=== PATIENT | male | born 1990 | race African-American/Black ===

== ENCOUNTER 2018-07-13 13:36 | Inpatient (IN) | payer OTHER ==
[~2018-07-13] VITALS: Ht 175.3 cm; Wt 82.1 kg
[2018-07-13 14:25] LABS: HEMATOCRIT 46.6 % (42.0-52.0); HEMOGLOBIN 15.2 g/dl (13.5-17.5); MEAN CORPUSCULAR HEMOGLOBIN 26.9 pg (27.0-33.0); MEAN CORPUSCULAR HGB CONC 32.6 g/dl (32.0-36.5); MEAN CORPUSCULAR VOLUME 82.3 fl (80.0-96.0); PLATELET COUNT, AUTOMATED 240 10^3/uL (150-450); RED BLOOD COUNT 5.66 10^6/uL (4.30-6.10); WHITE BLOOD COUNT 5.4 10^3/uL (4.0-10.0)
[2018-07-13 16:07] LABS: ACETAMINOPHEN LEVEL < 2.0 UG/ML (10.0-30.0); ALBUMIN 4.2 GM/DL (3.2-5.2); ALT/SGPT 43 U/L (12-78); BILIRUBIN,DIRECT 0.2 MG/DL (0.0-0.2); BILIRUBIN,TOTAL 0.6 MG/DL (0.2-1.0); BLOOD UREA NITROGEN 12 MG/DL (7-18); CALCIUM LEVEL 8.6 MG/DL (8.5-10.1); CARBON DIOXIDE LEVEL 27 MEQ/L (21-32); CHLORIDE LEVEL 106 MEQ/L (98-107); ETHYL ALCOHOL (ETHANOL) < 0.003 % (0.000-0.010); GLOMERULAR FILTRATION RATE > 60.0 (>60); GLUCOSE, FASTING 108 MG/DL (70-100); POTASSIUM SERUM 3.8 MEQ/L (3.5-5.1); SALICYLATE LEVEL < 1.7 MG/DL (5.0-30.0); SODIUM LEVEL 139 MEQ/L (136-145)
[2018-07-13 16:25] LABS: AMPHETAMINES LEVEL URINE NEGATIVE (NEGATIVE); BARBITURATES URINE NEGATIVE (NEGATIVE); BENZODIAZEPINES URINE NEGATIVE (NEGATIVE); CANNABINOIDS URINE NEGATIVE (NEGATIVE); COCAINE METABOLITE URINE NEGATIVE (NEGATIVE); METHADONE URINE NEGATIVE (NEGATIVE); OPIATES URINE NEGATIVE (NEGATIVE); PHENCYCLIDINE URINE NEGATIVE (NEGATIVE)
[2018-07-13] MEDS ORDERED: MOM 30ML SUSPENSION UDC PO PRN (18:00)
[2018-07-13] MEDS ORDERED: MAALOX 30 ML SUSP *UDC PO PRN (18:00)
[2018-07-13] MEDS ORDERED: ACETAMINOPHEN TAB 650MG DOSE (2X325MG) PO PRN (18:00)
[2018-07-13 23:30] VITALS: BP 122/72
[2018-07-14 06:35] VITALS: BP 124/65
--- NOTE | 2018-07-14 10:38 | MHHPEPDOC ---
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 Per [facility] mental health evaluation: "Patient sent here from [facility] by his therapist (Noah Merida, [employer]), following a crisis evaluation. Patient reportedly had been in group therapy today, when he began to break down about a recent situation which he was involved in. During the crisis eval patient described as being very tearful, reported being depressed & endorsed + SI, including plans to either hang himself in his barracks room or cut his neck with a knife." States he has been experiencing rejection lately. Says after returning from [facility] one of his friends blocked him on "facebook". Says he wants to "get better" after [facility]. Reports he was there from January to June of this year. Says he played a support role, but did not see combat. Says he has had periods of depression growing up, but that being away from family for the first time during the holidays made him more depressed. During this time he states he was "depressed every day". Since returning from [facility] due to rejection from friend he has remained anxious and had suicidal ideations, says last time he had these thoughts was yesterday during group therapy. Denies HI/denies AVH/reyna/PTSD. Psychiatric Review of Systems Depression (2 or more weeks): depressed mood, insomnia/hypersomnia (wakes up early in the morning for 2 hours, tries to get back to sleep), feelings of excess/guilt (Related to leaving [facility] early due to mental illness, says he felt that he was a burden on others so kept to himself.), decreased energy (a little lower than average.), difficulty concentrating, appetite changes (Feels overeats.), psychomotor changes (retardation.), suicidal thoughts Reyna (4 or more days of): denies Psychosis: paranoia (Mild paranoia.), denies PTSD: intrusive memories Anxiety: gen/non-specific anxiety, situational anxiety (Being rejected by his friend) Anxiety/ 6 months or more of: restlessness, keyed up, difficulty concentrating, sleep disturbance Past Psychiatric History Has been going to [facility] since June otherwise no past psychiatric history Past Medical History Medical Problems Denies Head Injury: No Seizures: No Hospitalizations: No Surgeries: No Family Medical/Psychiatric HX Medical Problems Reports DM in Mother, as of 4 years ago. Father pre-diabetes. Psychiatric Disorders: No Addiction: No Suicide Attemps/Completions: No Addiction History nicotine (only in [facility] Social History Childhood: Grew up in [place] with parents, 1 older sister, 2 younger brothers. [place], eventually moving into a house at 15. No longer in contact with his sister, says they are "like strange rs", still in contact with father. Abuse/Trauma:Denies Current Living Situation: [place] in [facility] [place] [facility], says he has few friends. Education: Highschool, dropped out of college for "personal reasons due to argument with family" Employment: Social Support: Father only Legal: misdemeanor for loitering in 2013 (ran from home after argument from parents, wandering the streets) Marital: single Mental Status Examination General Appearance: well groomed, appears stated age, hospital scubs/clothing Build: average Demeanor: withdrawn, guarded Eye Contact: avoidant Activity: slowed Behavior: cooperative, withdrawn Speech: clear, slow, low in volume, non-spontaneous, impoverished Mood: depressed, anxious Affect: constricted, anxious Thought Process: circumstantial, depressed, slow Thought Content (Delusions): denies SI, HI, AVH, paranoia Thought Content (Other): guarded, guilty (Perseverates on feling guilty.), appears paranoid Thought Content (Aggressive): none reported Perception (Hallucinations): none reported Perception (Other): none reported Cognition (Impairment of): attention/concentration Cognition(Intelligence Est.): borderline Oriented: Awake, Alert, Oriented times three Insight: poor Judgment: Poor Psychosis: Denies Diagnoses 1. major depressive disorder with psychotic features 2. Unspecified anxiety disorder Assessment Patient endorses chronic depressed mood which worsened since being deployed to [facility]. 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 Currently denies SI, but "depends on the day". 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 [place] and appears mildly paranoid on interview. He agrees to start sertraline 50 mg PO daily for mood and aripiprazole 2.5 mg QHS as augmentation for mood and to help treat paranoia. Problem List Problems: (1) Depression with suicidal ideation Status: Acute Initial Treatment Plan 1. Patient was admitted on a [9.39] status. 2. Complete history was obtained. 3. With patients permission, family will be contacted and database will be expanded. 4. Patients medication regimen will be reviewed and changed accordingly. 5. Patient will be provided with protected environment. 6. Patient will be treated with individual, group, and milieu therapies. 7. Patient will receive supportive psych-education. 8. Discharge planning will commence immediately. 9. Outpatient follow-up treatment will be strongly recommended. 10. The initial treatment plan will focus initially on: * Depression. * Risk for suicide. * Substance abuse risk. ESTIMATED LENGTH OF STAY: 5-7 DAYS. TIME SPENT COUNSELING AND COORDINATING INITIAL CARE: 60 minutes. Vital Signs Vital Signs Date Time Temp Pulse Resp B/P (MAP) Pulse Ox O2 Delivery O2 Flow Rate FiO2 07/14/18 06:35 99.0 65 14 124/65 (84) 07/13/18 23:30 97 07/13/18 13:45 Room Air Laboratory Data 24H Labs Laboratory Tests 2 07/13/18 14:00: Anion Gap 6L, Glomerular Filtration Rate > 60.0, Calcium Level 8.6, Aspartate Amino Transf (AST/SGOT) 24, Alanine Aminotransferase (ALT/SGPT) 43, Alkaline Phosphatase 100, Total Bilirubin 0.6, Direct Bilirubin 0.2, Total Protein 7.0, Albumin 4.2, Albumin/Globulin Ratio 1.50, Thyroid Stimulating Hormone (TSH) 1.320, Salicylates Level < 1.7L, Acetaminophen Level < 2.0L, Ethyl Alcohol Level < 0.003 07/13/18 14:07: Nucleated Red Blood Cells % (auto) 0.0 07/13/18 15:52: Urine Amphetamines Screen NEGATIVE, Urine Benzodiazepines Screen NEGATIVE, Urine Opiates Screen NEGATIVE, Urine Methadone Screen NEGATIVE, Urine Barbiturates Screen NEGATIVE, Urine Phencyclidine Screen NEGATIVE, Urine Cocaine Metabolite Screen NEGATIVE, Urine Cannabinoids Screen NEGATIVE CBC/BMP Laboratory Tests 07/13/18 14:00 07/13/18 14:07 Red Blood Count 5.66, Mean Corpuscular Volume 82.3, Mean Corpuscular Hemoglobin 26.9 L, Mean Corpuscular Hemoglobin Concent 32.6, Red Cell Distribution Width 11.7 Medications No Active Prescriptions or Reported Meds Allergies Coded Allergies: No Known Drug Allergies (Verified Allergy, Unknown, 07/13/18) JERICA IRBY PGY-1 Jul 14, 2018 10:38
[2018-07-14] MEDS ORDERED: PILL CRUSHER/CUTTER 1 EACH XX PRN (10:45)
[2018-07-14] MEDS: SERTRALINE HCL 50 MG TAB PO SCH (11:35)
[2018-07-14 18:00] VITALS: BP 130/67
--- NOTE | 2018-07-14 18:38 | CR.PDOC ---
General Date of Consultation: Jul 14, 2018 Consultation REASON FOR CONSULTATION/CHIEF COMPLAINT: [new psych admission ]. 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 Per [facility] mental health evaluation: "Patient sent here from [facility] by his therapist (Noah Merida, [facility]), following a crisis evaluation. Patient reportedly had been in group therapy yesterday, when he began to break down about a recent situation which he was involved in. During the crisis eval patient described as being very tearful, reported being depressed & endorsed + SI, including plans to either hang himself in his barracks room or cut his neck with a knife." States he has been experiencing rejection lately. Says after returning from [facility] one of his friends blocked him on "[employer]". He denied any symptoms including fever, chills, chest pain, sob, headache bowel or bladder problem. ROS - all 14 point review of system is negative except for whats listed in HPI ALLERGIES: Please see below. HOME MEDICATIONS: Please see below. PAST MEDICAL HISTORY: none PAST SURGICAL HISTORY: none FAMILY HISTORY: Reports DM in Mother, as of 4 years ago. Father pre-diabetes. 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 PHYSICAL EXAMINATION: VITAL SIGNS: Please see below. Gen: NAD, healthy appearing , HEENT: normocephalic, atraumatic, no discharge from ears or nose, no oropharyngeal erythema or exudate, neck is supple, no lymphadenopathy, trachea midline CVS: RRR, normal S1n S2, no murmur, rubs, or gallops, no edema, no jvd Resp: LCTAB, no rhonchi, wheezes or crackles Abd : soft nontender, normal bowel sounds, no rebound tenderness or guarding MSK: no swelling, full range of motion, strength 5/5 Neuro: AOAx3, no confusion, no focal deficit Psych: normal mood and affect, good judgment LABORATORY DATA: Please see below. ASSESSMENT/PLAN: suicidal thoughts and ideation - mgt per psych Medical recs vitals stable, lab wnl, no complaint , utox negative medicine sign off consult prn dvt ppx - ambulates , doesn't need unless patient is not walking around much full code , from home Vital Signs/I&O Vital Signs Date Time Temp Pulse Resp B/P (MAP) Pulse Ox O2 Delivery O2 Flow Rate FiO2 07/14/18 06:35 99.0 65 14 124/65 (84) 07/13/18 23:30 97 07/13/18 13:45 Room Air Allergies Coded Allergies: No Known Drug Allergies (Verified Allergy, Unknown, 07/13/18) Home Medications No Active Prescriptions or Reported Meds JOSE DAVID [place] MD Jul 14, 2018 18:38
[2018-07-14] MEDS ORDERED: NS 1,000 ML IV SCH (19:00)
--- NOTE | 2018-07-14 19:31 | ECGEPIP ---
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
[2018-07-14] MEDS: OLANZapine ORAL DISINTEGRATING TAB 5MG PO PRN (20:02)
[2018-07-14] MEDS: hydrOXYzine 50 MG TAB PO PRN (20:02)
[2018-07-15 06:56] LABS: HEMOGLOBIN A1c 6.2 %
[2018-07-15 07:00] VITALS: BP 131/69
[2018-07-15 07:03] LABS: CHOLESTEROL RISK RATIO 3.333 (<5)
[2018-07-15] MEDS: SERTRALINE HCL 50 MG TAB PO SCH (09:33)
--- NOTE | 2018-07-15 12:01 | MHIPNPDOC ---
[facility] Progress Note Progress Note DATE OF SERVICE: 07/15/18 HISTORY: See HPI Interval history: Remains isolative in room during AM, missing breakfast. Appetite still decreased, says sleep was "better". Encouraged to go to groups, says he will make an effort. denies SI/HI/josie. Says he continues to be depressed. States that he is not having side effects from the medications, but the abilify possibly contributes to fatigue in the AM. Says mood is "pretty good". [place], says gave aftershave as a [employer] gift, but that he is not attracted to him as more than a friend. VITAL SIGNS: See below. NEW TEST RESULTS: see below, EKG unremarkable, QTc <450 ms, Hba1c 6.2%, LDL elevated at 120 CURRENT MEDICATIONS: See below. MENTAL STATUS EXAMINATION: Patient is a 27-year old male, who is lying in bed comfortably, hygiene is fair, cooperative, pleasant, well-groomed in hospital clothing. Speech: Is slowed, decreased volume. Language skills are poor. Thought processes including: circumstantial. Thought content: says he needs help with depression. Perseverates on being rejected by friend. Abstract reasoning, and computation: fair Description of associations: intact Description of abnormal or psychotic thoughts: denies Judgment: poor. Insight: improving. Orientation: x4. Recent and remote memory: intact. Attention span and concentration: poor concentration. Language: fijian. Fund of knowledge: average. Mood: "pretty good". Affect: depressed, blunted, does not smile. DIAGNOSES: 1. Major depressive disorder with psychotic features 2. Unspecified anxiety disorder ASSESSMENT; Patient continues to be depressed, not attending groups yet, appetite remains poor, but sleep has improved with medications. Tolerating medications well apart from mild sedation from Abilify as his body adjusts to the medication. MANAGEMENT PLAN: See above TIME SPENT: 20 minutes. Vital Signs Vital Signs Date Time Temp Pulse Resp B/P (MAP) Pulse Ox O2 Delivery O2 Flow Rate FiO2 07/15/18 07:00 98.5 63 16 131/69 (89) 07/13/18 23:30 97 07/13/18 13:45 Room Air Laboratory Data 24H Labs Laboratory Tests 2 07/15/18 06:13: Estimated Mean Plasma Glucose 131H, Hemoglobin A1c 6.2, Triglycerides Level 65, LDL Cholesterol 120H, Total Cholesterol 190, Non-HDL Cholesterol (LDL + VLDL) 133, Total HDL Cholesterol 57, Cholesterol/HDL Ratio 3.333 Current Medications Current Medications Acetaminophen (Tylenol Tab) 650 mg Q6HP PRN PO HEADACHE or DISCOMFORT; Start 07/13/18 at 18:00 Al Hydrox/Mg Hydrox/Simethicone (Mylanta) 30 ml Q4HP PRN PO HEARTBURN/INDIGESTION; Start 07/13/18 at 18:00 Aripiprazole (AbiLIFY) 2.5 mg QHS PO Last administered on 07/14/18at 20:03; Start 07/14/18 at 21:00 Home Med (Med Rec Complete!) ASDIRECTED XX ; Start 07/13/18 at 19:00; Stop 07/13/18 at 19:05; Status DC Hydroxyzine HCl (Atarax) 50 mg Q6HP PRN PO ANXIETY Last administered on 07/14/18at 20:02; Start 07/14/18 at 11:30 Magnesium Hydroxide (Milk Of Magnesia) 30 ml DAILYPRN PRN PO CONSTIPATION; Start 07/13/18 at 18:00 Olanzapine (ZyPREXA ZYDIS) 5 mg Q4HP PRN PO AGITATION Last administered on 07/14/18at 20:02; Start 07/13/18 at 18:00 Sertraline HCl (Zoloft) 50 mg DAILY PO Last administered on 07/15/18at 09:33; Start 07/14/18 at 09:00 Sodium Chloride 1,000 ml @ 50 mls/hr Q20H IV ; Start 07/14/18 at 19:00; Stop 07/14/18 at 19:08; Status DC Trazodone HCl (Desyrel) 50 mg QHSP PRN PO INSOMNIA; Start 07/14/18 at 00:15 Allergies Coded Allergies: No Known Drug Allergies (Verified Allergy, Unknown, 07/13/18) JERICA IRBY PGY-1 Jul 15, 2018 12:01
[2018-07-15] MEDS: hydrOXYzine 50 MG TAB PO PRN (15:48)
[2018-07-15 18:00] VITALS: BP 115/75
[2018-07-16 07:07] VITALS: BP 117/77
[2018-07-16] MEDS: SERTRALINE HCL 50 MG TAB PO SCH (08:39)
[2018-07-16] MEDS: hydrOXYzine 50 MG TAB PO PRN (14:55)
--- NOTE | 2018-07-16 15:02 | MHIPNPDOC ---
[facility] Progress Note Progress Note DATE OF SERVICE: 07/16/18 HISTORY: See HPI Interval history: Patient no longer isolative to his room and has been attending groups today. Affect appears brighter. States he feels "betrayed by my friend I gave the ai's gift to, he was like a brother to me". Says he has had anxiety since [place], denies exposure to trauma, denies nightmares, intrusive memories or flashbacks. Says during holidays no family contacted him and he was hurt by this, but denies any other major stressors. VITAL SIGNS: See below. NEW TEST RESULTS: see below. CURRENT MEDICATIONS: See below. MENTAL STATUS EXAMINATION: Patient is a 27-year old male, who is lying in bed comfortably, hygiene is fair, cooperative, pleasant, well-groomed in hospital clothing. Speech: Is slowed, decreased volume. Language skills are poor. Thought processes including: circumstantial. Thought content: says he needs help with depression. Continues to perseverate on being rejected by friend. Abstract reasoning, and computation: fair Description of associations: intact Description of abnormal or psychotic thoughts: denies Judgment: improving Insight: improving. Orientation: x4. Recent and remote memory: intact. Attention span and concentration: poor concentration. Language: kosovan. Fund of knowledge: average. Mood: "still pretty good". Affect: dysthymic, constricted, does rarely smile. DIAGNOSES: 1. Major depressive disorder with psychotic features 2. Unspecified anxiety disorder ASSESSMENT; Still depressed and anxious, but less isolative to his room and affect appears bright, was seen smiling and times. He has started to attend groups, reports tolerateing medications without side effects and agrees to increase aripiprazole from 2.5 mg to 5 mg PO QHS for augmentation of SSRI. Less sedation today from aripiprazole. He agrees to continued inpatient stay as he reports he "still needs time for things to be right". Continue sertraline 50 mg Po daily for depression and anxiety. Denies SI/HI/AVH/josie. MANAGEMENT PLAN: See above TIME SPENT: 20 minutes. Vital Signs Vital Signs Date Time Temp Pulse Resp B/P (MAP) Pulse Ox O2 Delivery O2 Flow Rate FiO2 07/16/18 07:07 98.6 67 16 117/77 (90) 07/13/18 23:30 97 07/13/18 13:45 Room Air Current Medications Current Medications Acetaminophen (Tylenol Tab) 650 mg Q6HP PRN PO HEADACHE or DISCOMFORT; Start 07/13/18 at 18:00 Al Hydrox/Mg Hydrox/Simethicone (Mylanta) 30 ml Q4HP PRN PO HEARTBURN/INDIGESTION; Start 07/13/18 at 18:00 Aripiprazole (AbiLIFY) 2.5 mg QHS PO Last administered on 07/15/18 20:22; Start 07/14/18 at 21:00; Stop 07/16/18 at 11:25; Status DC Aripiprazole (AbiLIFY) 5 mg QHS PO ; Start 07/16/18 at 21:00 Home Med (Med Rec Complete!) ASDIRECTED XX ; Start 07/13/18 at 19:00; Stop 07/13/18 at 19:05; Status DC Hydroxyzine HCl (Atarax) 50 mg Q6HP PRN PO ANXIETY Last administered on 07/15/18at 15:48; Start 07/14/18 at 11:30 Magnesium Hydroxide (Milk Of Magnesia) 30 ml DAILYPRN PRN PO CONSTIPATION; Start 07/13/18 at 18:00 Olanzapine (ZyPREXA ZYDIS) 5 mg Q4HP PRN PO AGITATION Last administered on 07/14/18at 20:02; Start 07/13/18 at 18:00 Sertraline HCl (Zoloft) 50 mg DAILY PO Last administered on 07/16/18at 08:39; Start 07/14/18 at 09:00 Sodium Chloride 1,000 ml @ 50 mls/hr Q20H IV ; Start 07/14/18 at 19:00; Stop 07/14/18 at 19:08; Status DC Trazodone HCl (Desyrel) 50 mg QHSP PRN PO INSOMNIA; Start 07/14/18 at 00:15 Allergies Coded Allergies: No Known Drug Allergies (Verified Allergy, Unknown, 07/13/18) JERICA IRBY PGY-1 Jul 16, 2018 11:28
[2018-07-16 18:00] VITALS: BP 132/74
[2018-07-16] MEDS: traZODone 50 MG TAB PO PRN (22:51)
[2018-07-17 06:58] VITALS: BP 134/86
[2018-07-17] MEDS: SERTRALINE HCL 50 MG TAB PO SCH (08:24)
--- NOTE | 2018-07-17 13:47 | MHIPNPDOC ---
[facility] Progress Note Progress Note DATE OF SERVICE: 07/17/18 HISTORY: See HPI Interval history: Patient was seen eating lunch in break room. Reports good appetite. Interview conducted in his room. He is now more able to express himself spontaneously with brighter affect. He states he is tolerating the medications well without side effects including symptoms of akathisia, but does have periods of anxiety since confined on the unit and asked for hydroxyzine which helped significantly. States sleep was poor last night since people check on him in intervals. He says he continues to fell "better" and that anxiety/coping skills group was helpful. During therapy session he endorsed he had special education up to grade 9, but finished highschool without IEP help in normal class. States that he was "differently and harder" by mother growing up compared to siblings and this has affected his self-esteem as an adult. We discussed how continued therapy would be most beneficial for him. Says when he came in to the unit he felt the "selby were closing in on him" and now he is "starting to feel hope". He is agreeable to staying over the weekend to improve and says the "medications are just starting to work" and wants to feels safe on the outside. Denies SI/HI/AVH/josie, but worried could decompensate if not allowed some more inpatient treatment, despite wanting to leave. VITAL SIGNS: See below. NEW TEST RESULTS: see below. CURRENT MEDICATIONS: See below. MENTAL STATUS EXAMINATION: Patient is a 27-year old male, who is lying in bed comfortably, hygiene is fair, cooperative, pleasant, well-groomed in hospital clothing. Speech: Is slowed, decreased volume. Language skills are improving. Thought processes including: linear, logical Thought content: says he needs help with depression. Continues to perseverate on being rejected by friend. Abstract reasoning, and computation: fair Description of associations: intact Description of abnormal or psychotic thoughts: denies Judgment: improving Insight: improving. Orientation: x4. Recent and remote memory: intact. Attention span and concentration: poor concentration. Language: indonesian. Fund of knowledge: average. Mood: "getting better". Affect: less dysthymic, less constricted, does rarely smile. DIAGNOSES: 1. Major depressive disorder with psychotic features 2. Unspecified anxiety disorder ASSESSMENT; Less depressed, but still has periods where he is anxious, continues to be less isolative to his room and affect continues to appear less constricted and brighter, still smiling and times. Finds attending groups to be helpful to manage anxiety, continues to tolerate medications without side effects, no akathisia symptoms or sedation and agrees to continue aripiprazole 5 mg PO QHS for augmentation of SSRI. He agrees to continued inpatient stay. Continue sertraline 50 mg Po daily for depression and anxiety. Denies SI/HI/AVH/josie, bu t worries may decompensate if he leaves to early and agrees to stay the weekend. MANAGEMENT PLAN: See above TIME SPENT: 30 minutes. Vital Signs Vital Signs Date Time Temp Pulse Resp B/P (MAP) Pulse Ox O2 Delivery O2 Flow Rate FiO2 07/17/18 06:58 98.0 59 14 134/86 (102) 07/13/18 23:30 97 07/13/18 13:45 Room Air Current Medications Current Medications Acetaminophen (Tylenol Tab) 650 mg Q6HP PRN PO HEADACHE or DISCOMFORT; Start 07/13/18 at 18:00 Al Hydrox/Mg Hydrox/Simethicone (Mylanta) 30 ml Q4HP PRN PO HEARTBURN/INDIGE STION; Start 07/13/18 at 18:00 Aripiprazole (AbiLIFY) 2.5 mg QHS PO Last administered on 07/15/18at 20:22; Start 07/14/18 at 21:00; Stop 07/16/18 at 11:25; Status DC Aripiprazole (AbiLIFY) 5 mg QHS PO Last administered on 07/16/18at 20:20; Start 07/16/18 at 21:00 Home Med (Med Rec Complete!) ASDIRECTED XX ; Start 07/13/18 at 19:00; Stop 07/13/18 at 19:05; Status DC Hydroxyzine HCl (Atarax) 50 mg Q6HP PRN PO ANXIETY Last administered on 07/16/18at 14:55; Start 07/14/18 at 11:30 Magnesium Hydroxide (Milk Of Magnesia) 30 ml DAILYPRN PRN PO CONSTIPATION; Start 07/13/18 at 18:00 Olanzapine (ZyPREXA ZYDIS) 5 mg Q4HP PRN PO AGITATION Last administered on 07/14/18at 20:02; Start 07/13/18 at 18:00 Sertraline HCl (Zoloft) 50 mg DAILY PO Last administered on 07/17/18at 08:24; Start 07/14/18 at 09:00 Sodium Chloride 1,000 ml @ 50 mls/hr Q20H IV ; Start 07/14/18 at 19:00; Stop 07/14/18 at 19:08; Status DC Trazodone HCl (Desyrel) 50 mg QHSP PRN PO INSOMNIA Last administered on 07/16/18at 22:51; Start 07/14/18 at 00:15 Allergies Coded Allergies: No Known Drug Allergies (Verified Allergy, Unknown, 07/13/18) JERICA IRBY PGY-1 Jul 17, 2018 12:40
[2018-07-17 18:32] VITALS: BP 147/84
[2018-07-17] MEDS: hydrOXYzine 50 MG TAB PO PRN (20:29)
[2018-07-18 07:04] VITALS: BP 127/70
[2018-07-18] MEDS: SERTRALINE HCL 50 MG TAB PO SCH (08:32)
[2018-07-18 18:40] VITALS: BP 134/65
[2018-07-18] MEDS: OLANZapine ORAL DISINTEGRATING TAB 5MG PO PRN (21:39)
[2018-07-19 06:33] VITALS: BP 139/64
[2018-07-19] MEDS: SERTRALINE HCL 50 MG TAB PO SCH (09:30)
[2018-07-19 18:30] VITALS: BP 127/58
[2018-07-19] MEDS: hydrOXYzine 50 MG TAB PO PRN (21:05)
[2018-07-19] MEDS: traZODone 50 MG TAB PO PRN (22:49)
[2018-07-20] MEDS: OLANZapine ORAL DISINTEGRATING TAB 5MG PO PRN (01:07)
[2018-07-20 07:13] VITALS: BP 129/84
[2018-07-20] MEDS: SERTRALINE HCL 50 MG TAB PO SCH (09:22)
[2018-07-20] MEDS ORDERED: TRAZO50TA PO (11:30)
[2018-07-20] MEDS ORDERED: SERT-155 PO (11:30)
[2018-07-20] MEDS ORDERED: ABIL1TAB11 PO (11:30)
[2018-07-20] MEDS ORDERED: HYDRO50TAB PO (11:30)
--- NOTE | 2018-07-22 21:19 | MHDSPDOC ---
[facility] Discharge Summary Discharge Summary DATE OF ADMISSION: Jul 13, 2018 at 17:59 DATE OF DISCHARGE: July 20, 2018 DISCHARGE DIAGNOSES: 1. Major depressive disorder with psychotic features 2. Unspecified anxiety disorder REASON FOR ADMISSION: Per this fiction writer's H and P: "Patient is a 27 -year-old [employer], male, who has no past psychiatric history, no past psychiatric medications. Per [facility] mental health evaluation: "Patient sent here from [facility] by his therapist (Noah Merida, [facility]), following a crisis evaluation. Patient reportedly had been in group therapy today, when he began to break down about a recent situation which he was involved in. During the crisis eval patient described as being very tearful, reported being depressed & endorsed + SI, including plans to either hang himself in his barracks room or cut his neck with a knife." States he has been experiencing rejection lately. Says after returning from [facility] one of his friends blocked him on "facebook". Says he wants to "get better" after [facility]. Reports he was there from January to June of this year. Says he played a support role, but did not see combat. Says he has had periods of depression growing up, but that being away from family for the first time during the holidays made him more depressed. During this time he states he was "depressed every day". Since returning from [facility] due to rejection from friend he has remained anxious and had suicidal ideations, says last time he had these thoughts was yesterday during group therapy. Denies HI/denies AVH/josie/PTSD." CONSULTANTS INVOLVED: Medicine for initial workup TREATMENT AND PROGRESS ON THE UNIT : Patient admitted on a 9.39 involuntary status after reporting chronic depression and suicidal ideation. CBC unremarkable, CMP unremarkable, TSH within normal limits at 1.320, toxicology screen was negative. EKG was "normal", QTc 378 ms. Hba1c was normal 6.2%, LDL was elevated at 120 mg/dl. He endorsed bullying while growing up due to being placed in special education until grade 9 then finishing high school at normal level. States Mother was hard on him growing up compared to other siblings and this influenced his low ego. He endorsed feeling [place] giving [employer] gift. Discussed how outpatient CBT therapy would help him long-term. He also was labile and mildly disorganized and mildly pre-occupied on admission. was started on sertraline 50 mg PO daily for depression/anxiety, and aripiprazole 2.5 mg (which was titrated up to 5 mg Po QHS for augmentation and mild psychotic symptoms). He also had as needed 50 mg Po hydroxyzine Q6H for anxiety and as needed zyprexa 5 mg once for anxiety/agitation, was started on as needed 50 mg trazodone QHS for sleep. During stay he tolerated his medications well without common or rare side effects. Suicidal thoughts subsided and he denied homicidal thoughts. He reported improved sleep and energy, as well as improved mood during stay. He denied PTSD symptoms during stay. Appetite also improved, received group therapy and individual therapy. HOSPITAL COURSE: See above. DISCHARGE ASSESSMENT: On discharge patient denied suicidal or homicidal ideations, denied hallucinations, paranoia, delusions or josie. His mood was "good" and he denied medication side effects. [place]. MENTAL STATUS EXAMINATION ON DISCHARGE: Patient is a 27-year old male, who is sitting on bed comfortably, hygiene is improved, cooperative, pleasant, well-groomed in hospital clothing. Speech: normal rate, volume and mount Language skills improved Thought processes including: linear, logical Thought content: less depressed Abstract reasoning, and computation: fair Description of associations: intact Description of abnormal or psychotic thoughts: denies Judgment: fair Insight: good Orientation: x4. Recent and remote memory: intact. Attention span and concentration: improved concentration. Language: portuguese. Fund of knowledge: average. Mood: "good". Affect: less dysthymic, less constricted, smiles. MEDICATIONS ON DISCHARGE: Aripiprazole (Abilify) 5 Mg Tablet, 5 MG PO QHS for depression Sertraline HCl (Sertraline HCl) 50 Mg Tablet, 50 MG PO DAILY for depression Scheduled PRN Hydroxyzine HCl (Hydroxyzine HCl) 50 Mg Tablet, 50 MG PO Q6HP PRN for ANXIETY Trazodone HCl (Trazodone HCl) 50 Mg Tablet, 50 MG PO QHSP PRN for INSOMNIA PLAN/FOLLOWUP ARRANGEMENTS: Medical * Medical Follow Up [facility] * Established With This Provider Yes The amount of time spent in the coordination of care for this patient was approximately 30 minutes. Vital Signs/I&Os Vital Signs Date Time Temp Pulse Resp B/P (MAP) Pulse Ox O2 Delivery O2 Flow Rate FiO2 07/20/18 07:13 99.0 79 16 129/84 (99) Medications Scheduled Aripiprazole (Abilify) 5 Mg Tablet, 5 MG PO QHS for depression for 7 Days, #7 Sertraline HCl (Sertraline HCl) 50 Mg Tablet, 50 MG PO DAILY for depression for 7 Days, #7 Scheduled PRN Hydroxyzine HCl (Hydroxyzine HCl) 50 Mg Tablet, 50 MG PO Q6HP PRN for ANXIETY for 7 Days, #14 Trazodone HCl (Trazodone HCl) 50 Mg Tablet, 50 MG PO QHSP PRN for INSOMNIA for 7 Days, #7 Allergies Coded Allergies: No Known Drug Allergies (Verified Allergy, Unknown, 07/13/18) JERICA IRBY PGY-1 Jul 20, 2018 11:30
== END 2018-07-20 13:20 | disposition home or self-care (01) | DRG 885 ==
LOC: M ED 13:36 → M ED INP 17:59 → M PSY 22:50
PROVIDERS: ADMIT Psychiatry & Neurology Psychiatry; ATTEND Psychiatry & Neurology Psychiatry
DX: F32.3 Major depressive disorder, single episode, severe with psychotic features (principal); F41.9 Anxiety disorder, unspecified; Z91.82 Personal history of military deployment